=== PATIENT | male | born 1990 | race Caucasian/White ===

== ENCOUNTER 2018-12-29 08:24 | Emergency (ER) | payer MEDICAID ==
[~2018-12-29] VITALS: Ht 185.4 cm; Wt 60.4 kg
[2018-12-29 08:30] VITALS: BP 134/81
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
[2018-12-29] MEDS ORDERED: PRED50TA PO (08:56)
[2018-12-29] MEDS ORDERED: methylPREDNISolone SOD SUCC PF 125 MG/2 ML VIAL. IM ONE (09:00)
== END 2018-12-29 09:09 | disposition home or self-care (01) ==
LOC: ER 08:24
DX: L25.9 Unspecified contact dermatitis, unspecified cause (principal); J45.909 Unspecified asthma, uncomplicated; Z88.0 Allergy status to penicillin
CPT/HCPCS: 96372; 99283; J2930